=== PATIENT | male | born 1950 | race Asian ===

== ENCOUNTER 2018-02-16 16:30 | Emergency (ER) | END 2018-02-16 19:15 | disposition home or self-care (01) ==

== ENCOUNTER 2018-04-18 03:51 | Emergency (ER) | payer MEDICARE, MEDICAID ==
[~2018-04-18] VITALS: Ht 157.5 cm; Wt 76.6 kg
[~2018-04-18 03:51] MED LIST: AMLO-147 PO; ATOR-2 PO; HYDR12.58 PO; INSU100C SQ; LANT3I SC; LISI-471 PO; METO-335 PO
[2018-04-18 04:00] VITALS: Ht 157.5 cm; Wt 76.6 kg
--- NOTE | 2018-04-18 04:15 | ERD ---
ER Documentation Chief Complaint Chief Complaint dizziness, shakey, hypoglycemia x30 minutes. hx of DM HPI 67-year-old insulin-dependent diabetic who presents the emergency room after waking up suddenly around 3 AM and yelling and screaming at home. The patient states that he felt his normal usual state of health before going to bed. He is with his brother who is his roommate. It appears that around 3 AM he woke up confused and was yelling. This was transient. The do not recall his Accu-Chek at the time. The patient himself right now complains of a mild throbbing headache. He denies any chest pain or shortness of breath fevers or chills nausea vomiting or diarrhea. The patient states that he just feels slightly confused at this time. He is not sure what happened. ROS All systems reviewed and are negative except as per history of present illness. Medications Home Meds Reported Medications Insulin Lispro (Humalog) 100 Unit/1 Ml Cartridge, 7 UNIT SQ TIDM A, EA 02/16/18 Insulin Glargine* (Lantus*) 100 Unit/Ml Soln, 70 UNIT SC QAM, #1 VIAL 02/16/18 Hydrochlorothiazide* (Hydrochlorothiazide*) 12.5 Mg Tablet, 12.5 MG PO DAILY, #30 TAB 02/16/18 Amlodipine Besylate* (Amlodipine Besylate*) 10 Mg Tablet, 10 MG PO DAILY, #30 TAB 02/16/18 Metoprolol Succinate* (Toprol XL*) 25 Mg Tab.sr.24h, 25 MG PO DAILY, #30 TAB 02/16/18 Atorvastatin* (Atorvastatin*) 80 Mg Tablet, 80 MG PO QHS, #30 TAB 02/16/18 Lisinopril* (Lisinopril*) 20 Mg Tablet, 20 MG PO DAILY, #30 TAB 02/16/18 Allergies Allergies: Coded Allergies: No Known Allergies (Verified Allergy, Mild, 02/16/18) PMhx/Soc History of Surgery: No Anesthesia Reaction: No Hx Neurological Disorder: Yes (CVA) Hx Respiratory Disorders: No Hx Cardiac Disorders: Yes (GA , htn , high cholesterol ) Hx Psychiatric Problems: No Hx Miscellaneous Medical Probl: No Hx Alcohol Use: No Hx Substance Use: No Hx Tobacco Use: No FmHx Family History: diabetes Physical Exam Vitals Vital Signs Date Temp Pulse Resp B/P (MAP) Pulse Ox O2 O2 Flow FiO2 Time Delivery Rate 04/18/18 97.0 89 20 164/95 100 04:00 (118) Physical Exam General: Well developed, well nourished, no acute distress Head: Normocephalic, atraumatic. Eyes: Pupils equally reactive, EOM intact ENT: Moist mucous membranes Neck: Supple, no lymphadenopathy Respiratory: Lungs clear bilaterally, no distress Cardiovascular: RRR, no murmurs, rubs, or gallops Abdominal: Soft, non-tender, non-distended, no peritoneal signs : Deferred MSK: No edema, no unilateral swelling, 5/5 strength Neurologic: Alert and oriented, moving all extremities, normal speech, no focal weakness, no cerebellar signs, steady gait, no pronator drift Skin: No rash Psych: Normal mood Result Diagram: 04/18/18 0419 04/18/18 0419 Results 24 hrs Laboratory Tests Test 04/18/18 03:59 04/18/18 04:19 Bedside Glucose 66 mg/dL White Blood Count 12.8 10^3/ul Red Blood Count 4.78 10^6/ul Hemoglobin 13.3 g/dl Hematocrit 40.5 % Mean Corpuscular Volume 84.7 fl Mean Corpuscular Hemoglobin 27.8 pg Mean Corpuscular Hemoglobin Concent 32.8 g/dl Red Cell Distribution Width 12.3 % Platelet Count 302 10^3/UL Mean Platelet Volume 8.8 fl Immature Granulocytes % 0.400 % Neutrophils % 77.8 % Lymphocytes % 10.2 % Monocytes % 5.9 % Eosinophils % 5.0 % Basophils % 0.7 % Nucleated Red Blood Cells % 0.0 /100WBC Immature Granulocytes # 0.050 10^3/ul Neutrophils # 10.0 10^3/ul Lymphocytes # 1.3 10^3/ul Monocytes # 0.8 10^3/ul Eosinophils # 0.6 10^3/ul Basophils # 0.1 10^3/ul Nucleated Red Blood Cells # 0.0 10^3/ul Sodium Level 140 mmol/L Potassium Level 4.5 mmol/L Chloride Level 102 mmol/L Carbon Dioxide Level 25 mmol/L Anion Gap 13 Blood Urea Nitrogen 34 mg/dl Creatinine 2.12 mg/dl Est Glomerular Filtrat Rate mL/min 31 mL/min Glucose Level 61 mg/dl Calcium Level 9.6 mg/dl Troponin I 0.014 ng/ml Ethyl Alcohol Level < 10.0 mg/dl Procedures/MDM EKG, MONITORS, & DIAGNOSTIC IMAGING: EKG: I reviewed and interpreted a 12-lead EKG. Rhythm: Normal sinus rhythm ST Changes: No contiguous ST segment elevations T waves: No contiguous T wave inversions Impression: No evidence of acute cardiac ischemia CT brain: IMPRESSION: 1. No acute intracranial abnormalities. 2. 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 3. 0.7 cm partially imaged sclerotic focus of the right maxilla is likely related to underlying dentition. Correlation with prior dental imaging is suggested to assess stability. Consider follow-up dental imaging or CT for complete evaluation as warranted. RPTAT:HGST LAB INTERPRETATION: * Cr function slightly worse than prior in 2016 * Negative trop * Non specific WBC elevation, likely stress response MEDICAL DECISION MAKING: The patient presents to the emergency room with a transient episode of confusion upon waking around 3 AM. The patient is now ANO x3. He does feel somewhat confused but is able to have a full conversation and has a nonfocal neurologic examination. It is possible that the patient had a bad dream. Transient hypog lycemia is also a possibility but normal glucose now. The patient has no signs or symptoms concerning for stroke or acute coronary syndrome or infectious process. Given the fact that the patient is a diabetic and 67 years old it would be reasonable to check basic blood work, EKG, troponin and CT brain. However, low concern for acute emergent condition causing the symptoms. Reassurance is provi ded. Patient will be fed food. ER COURSE: * Patient has since returned to baseline with complete resolution of symptoms. * Given complex carbohydrate meal * Observed for 1.5 hours during which time he remains well appearing, stable BG values * Patient informed of labs and imaging and need to follow renal function advised * At this point the patient can be safely discharged home. He lives with his br other who can check the patient and monitor for change in mental status and follow blood glucose values * Return precautions were discussed and understood CONSULTATION: None DISPOSITION PLAN: The patient does not have an identifiable emergent medical condition that warrants inpatient hospitalization at this time. The patient is deemed safe for discharge with outpatient follow-up. We discussed follow up with the patient's primary care doctor within 24 to 48 hours as needed. We also discussed return to the emergency room for worsening symptoms or worsening condition. Outpatient referral: None required Discharge Medications: None required Departure Diagnosis: Primary Impression: Hypoglycemia Additional Impressions: Hypnopompic hallucination Renal insufficiency Condition: Stable MAYDA VILLALBA MD Apr 18, 2018 04:15
[2018-04-18 05:18] VITALS: BP 155/89; PULSE 72; RESP 20
== END 2018-04-18 05:24 | disposition home or self-care (01) ==
LOC: E/R 03:51
DX: E11.649 Type 2 diabetes mellitus with hypoglycemia without coma (principal); N28.9 Disorder of kidney and ureter, unspecified; R44.2 Other hallucinations; I10 Essential (primary) hypertension; I25.2 Old myocardial infarction; Z86.73 Personal history of transient ischemic attack (TIA), and cerebral infarction without residual deficits; Z79.4 Long term (current) use of insulin
CPT/HCPCS: 36415; 70450; 80048; 80307; 82962; 84484; 85025; 93005